=== PATIENT | female | born 1980 | race Caucasian/White ===

== ENCOUNTER 2017-11-23 21:23 | Emergency (ER) | payer OTHER, MEDICAID ==
[~2017-11-23] VITALS: Ht 175.3 cm; Wt 111.1 kg
[~2017-11-23 21:23] MED LIST: CARAFATE 1 GM TA1 G1 PO; CEFDINIR PO; FLEXERIL PO; IBUPROFEN 800800 MG PO; MECLIZINE HCL25 M1 PO; NORCO 5-325 TA1 EACH PO; PERCOCET 5-3251 EACH PO; PHENERGAN 25 MG25 M1 PO; PRILOSEC 20 MG20 MG PO; TOPAMAX 25 MG T25 M1 PO; TOPAMAX50 MG PO; ZOFRAN ODT4 MG PO; ZOFRAN4 MG PO
[2017-11-23 21:49] LABS: ABSOLUTE BASOPHILS 0.1 thou/uL (0.0-0.2); ABSOLUTE EOSINOPHILS 0.3 thou/uL (0.0-0.7); ABSOLUTE LYMPHOCYTES 2.6 thou/uL (0.8-5.3); ABSOLUTE MONOCYTES 0.5 thou/uL (0.0-1.2); ABSOLUTE NEUTROPHILS 9.8 thou/uL (1.6-8.1); BASOPHILS 0.8 %; HEMATOCRIT 41.1 % (37.0-47.0); HEMOGLOBIN 13.8 gm/dL (12.0-15.0); LYMPHOCYTES 19.3 %; MCH 31.1 pg (26.0-34.0); MCHC 33.6 g/dL (28.0-37.0); MCV 92.4 fL (80.0-100.0); MONOCYTES 4.1 %; NUCLEATED RBCS 0 /100WBC; PLATELET COUNT* 207 thou/uL (150-400); POLYS 73.8 %; RBC 4.45 mil/uL (4.20-5.00); RDW-CV 13.3 % (10.5-14.5); WBC 13.3 thou/uL (4.0-11.0)
[2017-11-23 21:54] LABS: URINE BILIRUBIN NEGATIVE (Negative); URINE BLOOD TRACE (Negative); URINE CLARITY CLEAR; URINE COLOR YELLOW; URINE GLUCOSE-RANDOM NEGATIVE (Negative); URINE KETONES NEGATIVE (Negative); URINE LEUKOCYTES-REFLEX NEGATIVE (Negative); URINE NITRITE-REFLEX NEGATIVE (Negative); URINE PROTEIN NEGATIVE (Negative); URINE SPECIFIC GRAVITY >= 1.030 (1.005-1.030); URINE UROBILINOGEN 0.2 E.U./dl (0.2-1.0)
[2017-11-23 21:59] LABS: CALCIUM 9.4 mg/dL (8.5-10.1); CREATININE 0.7 mg/dL (0.6-1.3); POTASSIUM 3.4 mmol/L (3.5-5.1)
[2017-11-23 22:03] LABS: ALBUMIN 3.9 g/dL (3.4-5.0); TOTAL BILIRUBIN 0.2 mg/dL (<0.1-1.0); TOTAL PROTEIN 8.2 g/dL (6.4-8.2)
[2017-11-23 22:08] LABS: APTT 25.6 Seconds (25.0-31.3); INR 1.1; PROTIME 10.8 Seconds (9.20-11.50)
[2017-11-23] MEDS ORDERED: FLAGYL500 MG PO (23:16)
[2017-11-23] MEDS ORDERED: CIPRO500 MG PO (23:16)
[2017-11-23] MEDS ORDERED: NORCO 5-325 TA1 EAC1 PO (23:17)
[2017-11-23 23:35] VITALS: BP 141/97
== END 2017-11-23 23:35 | disposition home or self-care (01) ==
LOC: M.ERS 21:23
PROVIDERS: Physician Assistant
DX: K52.9 Noninfective gastroenteritis and colitis, unspecified (principal); Z88.1 Allergy status to other antibiotic agents; Z88.0 Allergy status to penicillin

== ENCOUNTER 2017-11-25 23:08 | Observation (INO) | payer OTHER, MEDICAID ==
[~2017-11-25] VITALS: Ht 175.3 cm; Wt 116.1 kg
--- NOTE | ~2017-11-25 | OP ---
[address] [address] OPERATIVE REPORT Name: JEREMY CAREY Room: [address] IN M.R.#: [id number] Admission: 11/26/17 Attend Phys: Robin Bhatti Discharge: 11/27/17 Date of : 84 Report #: [id number] THIS REPORT FOR: //name// For additional GI procedure report details, please see the Provation Report in Perceptive 7 content. By: 1311Medical Records Staff NETO /JESUSITA
[~2017-11-25 23:08] MED LIST changes: +CIPRO500 MG PO; +FLAGYL500 MG PO; +NORCO 5-325 TA1 EAC1 PO
[2017-11-25 23:10] VITALS: BP 137/89
[2017-11-25 23:49] LABS: ABSOLUTE BASOPHILS 0.1 thou/uL (0.0-0.2); ABSOLUTE EOSINOPHILS 0.4 thou/uL (0.0-0.7); ABSOLUTE MONOCYTES 0.7 thou/uL (0.0-1.2); ABSOLUTE NEUTROPHILS 5.2 thou/uL (1.6-8.1); BASOPHILS 1.1 %; EOSINOPHILS 4.4 %; HEMATOCRIT 38.5 % (37.0-47.0); LYMPHOCYTES 31.5 %; MCH 31.3 pg (26.0-34.0); MCHC 33.8 g/dL (28.0-37.0); MCV 92.7 fL (80.0-100.0); MONOCYTES 7.7 %; MPV 7.3 fl. (7.2-11.1); NUCLEATED RBCS 0 /100WBC; PLATELET COUNT* 183 thou/uL (150-400); POLYS 55.3 %; RBC 4.15 mil/uL (4.20-5.00); RDW-CV 13.4 % (10.5-14.5); WBC 9.4 thou/uL (4.0-11.0)
[2017-11-26] LABS: ANION GAP 5 mmol/L (7-16); BUN 14 mg/dL (7-18); CALCIUM 8.7 mg/dL (8.5-10.1); CHLORIDE 107 mmol/L (98-107); CO2 29 mmol/L (21-32); CREATININE 0.8 mg/dL (0.6-1.3); GLUCOSE 104 mg/dL (70-99); SODIUM 141 mmol/L (136-145)
[2017-11-26 00:10] LABS: ALBUMIN 3.5 g/dL (3.4-5.0); ALKALINE PHOSPHATASE 81 U/L (46-116); SGOT 30 U/L (15-37); SGPT 43 U/L (30-65); TOTAL PROTEIN 7.4 g/dL (6.4-8.2)
[2017-11-26 00:11] LABS: TOTAL BILIRUBIN < 0.1 mg/dL (<0.1-1.0)
[2017-11-26 01:40] VITALS: BP 132/93; BP 137/89
--- NOTE | 2017-11-26 02:51 | NUR ---
PATIENT ARRIVED BY CART FROM ER TO ROOM 111 IN STABLE CONDITION AT 0140. ORIENTED X4. RATED PAIN AT A 7/10 ON ARRIVAL, FENTANYL GIVEN TO GOOD EFFECT. VITALS STABLE. CONTINUE TO MONITOR.
[2017-11-26 07:05] LABS: URINE BILIRUBIN NEGATIVE (Negative); URINE BLOOD NEGATIVE (Negative); URINE CLARITY CLEAR; URINE COLOR YELLOW; URINE GLUCOSE-RANDOM NEGATIVE (Negative); URINE KETONES NEGATIVE (Negative); URINE LEUKOCYTES NEGATIVE (Negative); URINE NITRITE NEGATIVE (Negative); URINE PROTEIN NEGATIVE (Negative); URINE UROBILINOGEN 0.2 E.U./dl (0.2-1.0)
[2017-11-26 10:39] VITALS: BP 99/62
--- NOTE | 2017-11-26 16:03 | NUR ---
CM SPOKE TO THE PATIENT TO DISCUSS HOME SITUATION, DISCHARGE PLANNING, AND TO INFORM OF THE ROLE OF CM. PATIENT ALERT, ORIENTED, AND INDEPENDENT WITH ADL'S. PATIENT RESIDES AT HOME WITH SIGNIFICANT OTHER. PATIENT ABLE TO PERFORM CURER ACID DRUM AND DRIVES. PATIENT OWNS 0 DME. PATIENT HAS NO HX OF HH OR SNF. PATIENT PLANS TO RETURN HOME AT DISCHARGE AND DOES NOT ANTICIPATE ANY NEEDS. PATIENT DOES NOT CURRENTLY HAVE A PCP, BUT GOES TO [facility] FOR MEDICAL CARE. CM PROVIDED THE PATIENT WITH A LIST OF PCP'S IN HER AREA. CM WILL REMAIN AVAILABLE TO ASSIST AND FOLLOW NEEDED.
[2017-11-26 16:08] VITALS: BP 93/65
--- NOTE | 2017-11-26 17:56 | NUR ---
PATIENT IS ALERT AND ORIENTED TODAY VERY PLEASANT. VITAL SIGNS STABLE ON ROOM AIR. PAIN IS WELL CONTROLLED WITH IV PAIN MEDICATIONS AND NAUSEA CONTROLLED WITH IV MEDICATIONS. PATIENT IS UP AD KWASI IN ROOM. WILL BE STARTING BOWEL PREP TOMORROW. CALL LIGHT IS IN REACH, WILL CONTINUE TO MONITOR.
[2017-11-26 20:00] VITALS: BP 117/74
[2017-11-27 04:27] LABS: ABSOLUTE BASOPHILS 0.1 thou/uL (0.0-0.2); ABSOLUTE EOSINOPHILS 0.4 thou/uL (0.0-0.7); ABSOLUTE LYMPHOCYTES 1.7 thou/uL (0.8-5.3); ABSOLUTE MONOCYTES 0.7 thou/uL (0.0-1.2); ABSOLUTE NEUTROPHILS 7.1 thou/uL (1.6-8.1); BASOPHILS 0.5 %; EOSINOPHILS 3.6 %; HEMATOCRIT 35.9 % (37.0-47.0); HEMOGLOBIN 12.1 gm/dL (12.0-15.0); LYMPHOCYTES 16.9 %; MCH 31.1 pg (26.0-34.0); MCHC 33.5 g/dL (28.0-37.0); MCV 92.7 fL (80.0-100.0); MPV 7.4 fl. (7.2-11.1); NUCLEATED RBCS 0 /100WBC; PLATELET COUNT* 155 thou/uL (150-400); RBC 3.88 mil/uL (4.20-5.00); WBC 9.9 thou/uL (4.0-11.0)
--- NOTE | 2017-11-27 04:30 | NUR ---
PATIENT ORIENTED X4 ON HOURLY ROUNDS. UP AD KWASI TO BATHROOM. BOWEL PREP GIVEN ORDERED. MULTIPLE BM'S THIS SHIFT. NOT YET CLEAR. MEDICATED FOR PAIN AND NAUSEA WITH PARTIAL EFFECT REPORTED. VITALS STABLE ON ROOM AIR. WILL CONTINUE TO MONITOR.
[2017-11-27 04:42] LABS: CALCIUM 8.9 mg/dL (8.5-10.1); CREATININE 0.8 mg/dL (0.6-1.3); POTASSIUM 4.1 mmol/L (3.5-5.1)
[2017-11-27 05:49] LABS: ESR (SEDRATE) 11 mm/hr (0-20)
--- NOTE | 2017-11-27 07:49 | CON ---
[address] [address] CONSULTATION Name: JEREMY CAREY MERON Room: [address] IN M.R.#: [id number] Admission: 11/26/17 Attend Phys: Robin Bhatti Discharge: Date of : 84 Report #: [id number] THIS REPORT FOR: //name// CC: CARLITOS Norton DATE OF SERVICE: 11/26/2017 INFECTIOUS DISEASE CONSULTATION ATTENDING PHYSICIAN: Dr. Norton. REASON FOR EVALUATION: Colitis. HISTORY OF PRESENT ILLNESS: Chart reviewed, the patient examined. This is a 37-year-old woman with history of lupus, although she is not particularly symptomatic, had a positive GOLDEN apparently and has not been on treatment. Also, a history of lymphoma as a teenager. She has had at least one relapse. She is currently not on therapy, who developed diarrheal illness and subsequently developed bright red blood per rectum and bilateral lower quadrant pain. She described it stabbing in character. There were associated chills and without evidence of fevers. She has not had previous similar-type episodes. She notes no particular exposure history. She does have 2 children aged 10 and 15. Nobody has been ill. She has animals that are primarily 2 indoor dogs. No recent travel. No dietary indiscretion. She has persistent pain at this point, still having bloody stools. The stool studies are pending. She was empirically started on ciprofloxacin and metronidazole. She is not encephalopathic. Denies any pulmonary-related complaints. ALLERGIES: PENICILLIN WHICH CAUSES ANAPHYLAXIS; ERYTHROMYCIN, AGAIN CAUSED ANAPHYLAXIS. CURRENT MEDICATIONS: Include Flagyl, Cipro, p.r.n. analgesics and antiemetics. PAST MEDICAL HISTORY: As described above, history of seizures, previous hysterectomy and some thyroid nodules with negative cultures. SOCIAL HISTORY: Smokes 1 to 2 packs per week. No ethanol. No illicit drug use. FAMILY HISTORY: Noncontributory. REVIEW OF SYSTEMS: As above. PHYSICAL EXAMINATION: GENERAL: She is pleasant, alert, cooperative, in mild distress, [place] [address] CONSULTATION Name: JEREMY CAREY MERON Room: [address]#: [id number] Admission: 11/26/17 Attend Phys: Robin Bhatti Discharge: Date of : 84 Report #: [id number] generally well nourished. VITAL SIGNS: Temperature 98, pulse 60, respirations 16 and blood pressure is 99/62. SKIN: Warm, dry. No rashes. HEENT: Unremarkable. NECK: Supple. LUNGS: Clear to auscultation. HEART: Regular. I do not appreciate a murmur. ABDOMEN: Soft, nontender and nondistended. There are no peritoneal signs. GENITOURINARY: Deferred. RECTAL: Deferred. LOWER EXTREMITIES: No edema. LABORATORY DATA: Negative test. Urinalysis unremarkable. Lactic acid 1.2. Electrolytes: Sodium 141, potassium 4.0, chloride 107, bicarbonate is 29 and BUN and creatinine 14 and 0.8. LFTs unremarkable. Albumin of 3.5. Total protein 7.4. Estimated GFR of 82. CBC; initial white count was 13.3, repeat was 9.4; H and H 13.0 and 38.5 and platelets of 183,000. CT abdomen and pelvis shows clear lung bases, mild thickening of the transverse colon and left descending sigmoid colonic wall. PT of 10.8 and INR 1.1. ASSESSMENT AND PLAN: Enteritis/colitis. We will continue empiric antibacterial therapy. Certainly, it could be dysentery, although need to consider noninfectious causes as well. We will await stool results. She is not overtly toxic at this point. Continue resuscitative measures with hydration. Advance diet as tolerated. <ELECTRONICALLY SIGNED> By: Alexandru Morocho MD 11/27/17 0749 1339 2200Jowalter Morocho MD /nt
[2017-11-27 07:55] VITALS: BP 115/68
--- NOTE | 2017-11-27 14:04 | NUR ---
PATIENT LEFT UNIT FOR PACU AT 1350. WILL CONTINUE TO MONITOR.
[2017-11-27 16:07] VITALS: BP 100/72
[2017-11-27 20:02] VITALS: BP 100/72
[2017-11-27] MEDS ORDERED: MIRALAX17 GM PO (20:08)
[2017-11-27] MEDS ORDERED: PRILOSEC OTC20 MG PO (20:09)
--- NOTE | 2017-12-01 12:32 | S ---
[place] [address] SURGICAL PATH RPT PROCEDURE Name: KYLEE CAREY Room: [address] IN ..#: [id number] Admission: 11/26/17 Date of : 84 Discharge: 11/27/17 Report #: [id number] Path Case #: [id number] PATHOLOGY REPORT COLLECTION DATE: 11/27/2017 RECEIVED DATE: 11/30/2017 SUBMITTING PHYS: Dr. Asia Davis OTHER PHYS: Dr. Shy Gan SPECIMEN(S) RECEIVED: A.Descending colon * * * * * * * * * * * * FINAL DIAGNOSIS: Descending colon/colitis: - Mild active colitis compatible with ischemic colitis, negative for granulomas, viral inclusions, and dysplasia. (see comment) COMMENT: The biopsies reveal benign colonic mucosa, several having fairly discrete superficial vaguely atrophic glands in association with condensed lamina propria, possibly fibrotic, and with fairly few neutrophils scattered in the lamina propria, also associated with some fresh hemorrhage. There is no significant crypt distortion or basal lymphoplasmacytosis to elevate a suspicion of inflammatory bowel disease. (RUSS:; 12/01/2017) PATHOLOGIST: Italo Carrasco M.D. REPORT ELECTRONICALLY SIGNED BY: Italo Carrasco M.D. DATE/TIME: 12/01/2017 12:32 * * * * * * * * * * * * GROSS PATHOLOGY: Received in formalin labeled "Kylee Carey, descending colon/colitis, suspicious for colonic ischemia," are seven segments of maguire soft tissue measuring 0.9 x 0.7 x 0.1 cm in aggregate dimensions and ranging from 0.2 to 0.7 cm in maximum dimension. The specimen is submitted entirely in cassette A1. (CAA; 11/30/2017) CLINICAL HISTORY: Suspicious for colonic ischemia INITIAL CPT CODE(S): [place] [id number] SURGICAL PATH RPT PROCEDURE Name: KYLEE CAREY Room: [address]#: [id number] Admission: 11/26/17 Date of : 84 Discharge: 11/27/17 Report #: [id number] Path Case #: [id number]; [id number] Professional services performed by [facility] at [facility], [facility] [place] [address]. Technical services performed by [employer] at [address] [place] [address], [facility] [address], [place] [address]. [facility] [address] [address] PHONE: [phone] DIRECTOR: Rob Rod M.D. * * * END OF REPORT * * *
--- NOTE | 2017-12-11 09:26 | D ---
[address] [address] DISCHARGE SUMMARY Name: JEREMY CAREY Room: [address] Mery Vasquez#: [id number] Admission: 11/26/17 Attend Phys: Robin Bhatti Discharge: 11/27/17 Date of : 84 Report #: [id number] THIS REPORT FOR: //name// CC: CARLITOSJocelyn Norton DATE OF SERVICE: 11/27/2017 DATE OF DISMISSAL: 11/27/2017. DISMISSAL DIAGNOSES: 1. Distal colon ischemic colitis. 2. Gastrointestinal bleed. 3. Suspected bacterial colitis. 4. History of lymphoma. 5. Moderate obesity. REASON FOR HOSPITAL STAY: This pleasant patient was admitted to the hospital with abdominal discomfort, diarrhea and rectal bleeding. PHYSICAL EXAMINATION: GENERAL: On admission, she was alert and oriented. VITAL SIGNS: Stable. She was afebrile. Blood pressure 115/68, pulse 57, respiratory rate was 16 and unlabored. ABDOMEN: Soft, nonsurgical. NEUROLOGIC: Cranial nerves 2-12 were grossly intact. She had normal function and speech. Gait was within normal limits. HEENT: Mucous membranes were moist. SKIN: Warm and dry. EXTREMITIES: Capillary refill was normal. Extremities were without tenderness. Homans sign was negative. LABORATORY DATA: Hemoglobin 12.1, platelets 155,000. Free T4 is 1.03. C-reactive protein was less than 2. The patient underwent colonoscopy by Dr. Daivs. Biopsies were suspicious for ischemic colitis. DISCHARGE INSTRUCTIONS: The patient was discharged on oral Flagyl and Cipro, to see Dr. Davis in 1 week and primary care doctor in 3-5 days. She may call or return with recurrent symptoms, which brought her to seek medical attention. DISCHARGE MEDICATIONS: For discharge medications, please see medication reconciliation. COMPLICATIONS: None. DISCHARGE CONDITION: [place] [address] DISCHARGE SUMMARY Name: JEREMY CAREY Room: [address] Mery Vasquez#: [id number] Admission: 11/26/17 Attend Phys: Robin Bhatti Discharge: 11/27/17 Date of : 84 Report #: [id number] CONSULTATIONS: With Dr. Morocho and Dr. Davis. PROCEDURES: Colonoscopy. <ELECTRONICALLY SIGNED> By: Timoteo Roach MD 12/11/17 0926 1931 2217Thjose roberto Roach MD /nt
--- NOTE | 2017-12-11 19:58 | CON ---
[address] [address] CONSULTATION Name: JEREMY CAREY Room: [address] Mery Vasquez#: [id number] Admission: 11/26/17 Attend Phys: Robin Bhatti Discharge: 11/27/17 Date of : 84 Report #: [id number] THIS REPORT FOR: //name// CC: CARLITOS MARTINO DATE OF SERVICE: 11/26/2017 ADDENDUM Visit ____job number [id number]. I have seen and examined today and agree with plans been outlined by our nurse practitioner, Shruthi Orlando. I agree that ischemic colitis is likely the diagnosis and that we will need to get her established bowel regimen once we determine the same. We will need to get her on a bowel regimen that will work to prevent further recurrence of the same. Since she also has problems with chronic acid reflux, but not take anything or any antacids on a p.r.n. basis, I also recommended we proceed with upper endoscopy tomorrow when she gets her colonoscopy. These have been scheduled with my partner, Dr. Davis, to be done tomorrow. <ELECTRONICALLY SIGNED> By: Reg Mckeon DO 12/11/171957 1708 Abi Mckeon DO /yoko
--- NOTE | 2017-12-11 19:58 | CON ---
[address] [address] CONSULTATION Name: JEREMY CAREY Room: [address] Mery Vasquez#: [id number] Admission: 11/26/17 Attend Phys: Robin Bhatti Discharge: 11/27/17 Date of : 84 Report #: [id number] THIS REPORT FOR: //name// CC: CARLITOS Torrez DICTATED BY: Shruthi Orlando [facility] DATE OF SERVICE: 11/26/2017 PRIMARY CARE PHYSICIAN: Cristhian Torrez in [place], [place]. Please note at the time of this dictation, the patient was seen and physically examined by myself. REASON FOR CONSULTATION: Abdominal pain and rectal bleeding. HISTORY OF PRESENT ILLNESS: This is a 37-year-old female who was seen yesterday in the office by myself after following up with an ER visit that she was here on the of this month, which she was sent home on Cipro and Flagyl because she wanted to be treated at home on antibiotics. CT findings at that time suggested of mild mural thickening of the transverse, descending, and sigmoid colon and she opted to go home on treatment. She followed up with me yesterday in the office. She was having some discomfort. She continued to have some bright red bloody diarrhea along with her stools. She states appetite has been a little diminished because it does make her feel a little sick to her stomach and worsening of abdominal pain when she has to have a bowel movement. Yesterday when she was seen in the office, she was given samples of Linzess 145, but she had not started taking them. Because she does have a history of constipation and had not really felt like she fully evacuated her bowel, she was instructed to do a bottle of magnesium citrate, which she did yesterday, ate dinner and then after eating dinner, her symptoms increasingly got worse, prompting her to come to the Emergency Room that she felt like she could no longer manage it as an outpatient. The patient was scheduled for an outpatient colonoscopy in December, but we will plan on doing one for tomorrow to further evaluate her symptomatology. ALLERGIES: PENICILLIN AND ERYTHROMYCIN. MEDICATIONS: From home include Cipro and Flagyl and then the [place]. PAST MEDICAL HISTORY: She has had a history of lymphoma x 2, first onset was at age 18, history of some lupus, seizure disorder. PAST SURGICAL HISTORY: Hysterectomy. She has had some skin biopsy, [place] [address] CONSULTATION Name: JEREMY CAREY Room: [address] Mery Vasquez#: [id number] Admission: 11/26/17 Attend Phys: Robin Bhatti Discharge: 11/27/17 Date of : 84 Report #: [id number] and knee surgery. FAMILY HISTORY: Father recently diagnosed with colon cancer at 54. SOCIAL HISTORY: She lives with her fiance. Denies any alcohol, tobacco or illegal drug use at this time. REVIEW OF SYSTEMS: Twelve-point review of systems is essentially negative except what is mentioned in the HPI. PHYSICAL EXAMINATION: VITAL SIGNS: Temperature 36.7, pulse 60, respirations 16, blood pressure 99/62. HEART: Regular rate and rhythm. LUNGS: Clear. ABDOMEN: Soft, positive bowel sounds in all 4 quadrants with generalized tenderness, mainly in the transverse and on the left side of the colon. LABORATORY DATA: Hemoglobin on the was 13.8. She is down to 13, hematocrit 38.5, white count today was 9.4, on the she was 13.5. Platelets 183, sodium 141, potassium 4, chloride 107, CO2 of 29, BUN is 14, creatinine 0.8, GFR is 82 and glucose is 104. Her CT scan from the showed mild thickening of the transverse, left descending and sigmoid colon. IMPRESSION: 1. Abdominal pain, worsening. 2. Bloody stool. 3. Colonic ischemia. 4. Personal history of lymphoma. 5. Family history of colon cancer, father, recently diagnosed. PLAN: 1. Colonoscopy tomorrow with Dr. Davis. 2. Continue IV Cipro and Flagyl. 3. Clear liquid diet. 4. Further recommendations to be made once the patient has had the colonoscopy tomorrow. 5. The patient will be instructed that if she is discharged over the weekend to start taking the Linzess that she was given samples in our office. Thank you for allowing us to participate in this patient's care. Please do not hesitate to call with any questions in regard to this consult. <ELECTRONICALLY SIGNED> By: Reg Mckeon DO 12/11/171957 1318 1825Reg Mckeon DO /nt
== END 2017-11-27 20:36 | disposition home or self-care (01) ==
LOC: M.ERS 23:08 → M.ORTHSURG 11-26 00:43 → M.TBA-ER 11-26 00:43 → M.ORTHSURG 11-26 00:43
PROVIDERS: Internal Medicine Gastroenterology; Physician Assistant; ADMIT Internal Medicine
DX: K52.9 Noninfective gastroenteritis and colitis, unspecified (principal); K55.1 Chronic vascular disorders of intestine; K64.8 Other hemorrhoids; K92.1 Melena; A04.9 Bacterial intestinal infection, unspecified; K52.89 Other specified noninfective gastroenteritis and colitis; K92.2 Gastrointestinal hemorrhage, unspecified; R93.3 Abnormal findings on diagnostic imaging of other parts of digestive tract; K21.9 Gastro-esophageal reflux disease without esophagitis; R56.9 Unspecified convulsions; E66.9 Obesity, unspecified; Z68.37 Body mass index [BMI] 37.0-37.9, adult; F17.210 Nicotine dependence, cigarettes, uncomplicated; Z85.72 Personal history of non-Hodgkin lymphomas; Z23 Encounter for immunization

== ENCOUNTER 2018-09-07 21:11 | Emergency (ER) | payer OTHER, MEDICAID ==
[~2018-09-07] VITALS: Ht 175.3 cm; Wt 120.2 kg
[~2018-09-07 21:11] MED LIST changes: +MIRALAX17 GM PO; +PRILOSEC OTC20 MG PO
[2018-09-07] MEDS ORDERED: SYNTHROID125 MC1 PO (21:21)
[2018-09-07 21:35] LABS: URINE BILIRUBIN NEGATIVE (Negative); URINE BLOOD NEGATIVE (Negative); URINE CLARITY CLEAR; URINE COLOR YELLOW; URINE GLUCOSE-RANDOM NEGATIVE (Negative); URINE KETONES NEGATIVE (Negative); URINE LEUKOCYTES-REFLEX NEGATIVE (Negative); URINE NITRITE-REFLEX NEGATIVE (Negative); URINE PROTEIN NEGATIVE (Negative); URINE SPECIFIC GRAVITY >= 1.030 (1.005-1.030); URINE UROBILINOGEN 0.2 E.U./dl (0.2-1.0)
[2018-09-07 21:42] LABS: AMP/METHAMP Negative (Negative); BARBITURATES Negative (Negative); BENZODIAZEPINES Negative (Negative); COCAINE Negative (Negative); METHADONE Negative (Negative); OPIATES Negative (Negative); PCP Negative (Negative); THC Negative (Negative)
[2018-09-07 21:59] LABS: ABSOLUTE BASOPHILS 0.1 thou/uL (0.0-0.2); ABSOLUTE EOSINOPHILS 0.4 thou/uL (0.0-0.7); ABSOLUTE LYMPHOCYTES 3.2 thou/uL (0.8-5.3); ABSOLUTE MONOCYTES 0.9 thou/uL (0.0-1.2); ABSOLUTE NEUTROPHILS 5.5 thou/uL (1.6-8.1); EOSINOPHILS 3.9 %; HEMATOCRIT 40.6 % (37.0-47.0); HEMOGLOBIN 13.6 gm/dL (12.0-15.0); LYMPHOCYTES 31.7 %; MCH 30.8 pg (26.0-34.0); MCHC 33.4 g/dL (28.0-37.0); MCV 92.4 fL (80.0-100.0); MONOCYTES 8.6 %; MPV 7.3 fl. (7.2-11.1); NUCLEATED RBCS 0 /100WBC; PLATELET COUNT* 212 thou/uL (150-400); POLYS 54.8 %; RDW-CV 13.7 % (10.5-14.5)
[2018-09-07 22:01] LABS: CALCIUM 8.8 mg/dL (8.5-10.1); CREATININE 0.9 mg/dL (0.6-1.3); POTASSIUM 3.6 mmol/L (3.5-5.1)
[2018-09-07 22:06] LABS: ALBUMIN 3.5 g/dL (3.4-5.0); TOTAL BILIRUBIN 0.2 mg/dL (<0.1-1.0); TOTAL PROTEIN 7.5 g/dL (6.4-8.2)
[2018-09-07 23:11] VITALS: BP 148/95
== END 2018-09-07 23:13 | disposition home or self-care (01) ==
LOC: M.ERS 21:11
PROVIDERS: Emergency Medicine
DX: R20.2 Paresthesia of skin (principal); M32.9 Systemic lupus erythematosus, unspecified; E89.0 Postprocedural hypothyroidism; R20.0 Anesthesia of skin; Z88.0 Allergy status to penicillin; Z88.1 Allergy status to other antibiotic agents; Z98.890 Other specified postprocedural states; Z90.710 Acquired absence of both cervix and uterus; Z79.899 Other long term (current) drug therapy

== ENCOUNTER 2019-03-21 22:14 | Emergency (ER) | payer OTHER, MEDICAID ==
[~2019-03-21] VITALS: Ht 175.3 cm; Wt 113.4 kg
[~2019-03-21 22:14] MED LIST changes: +SYNTHROID175 MCG
[2019-03-21] MEDS ORDERED: IBUPROFEN 800800 M1 PO (23:08)
[2019-03-21 23:49] VITALS: BP 114/84
== END 2019-03-21 23:23 | disposition home or self-care (01) ==
LOC: M.ERS 22:14
DX: S90.31XA Contusion of right foot, initial encounter (principal); M32.9 Systemic lupus erythematosus, unspecified; F17.210 Nicotine dependence, cigarettes, uncomplicated; Z88.1 Allergy status to other antibiotic agents; Z88.0 Allergy status to penicillin; Z88.5 Allergy status to narcotic agent; Z90.710 Acquired absence of both cervix and uterus; Z98.890 Other specified postprocedural states; W20.8XXA Other cause of strike by thrown, projected or falling object, initial encounter; Y93.89 Activity, other specified; Y92.89 Other specified places as the place of occurrence of the external cause; Y99.8 Other external cause status

== ENCOUNTER 2019-09-16 15:10 | Emergency (ER) | payer OTHER ==
[~2019-09-16] VITALS: Ht 175.3 cm; Wt 115.7 kg
[~2019-09-16 15:10] MED LIST changes: +IBUPROFEN 800800 M1 PO; -SYNTHROID175 MCG; +SYNTHROID175 MCG PO
[2019-09-16 15:43] LABS: HEMATOCRIT 44.4 % (37.0-47.0); HEMOGLOBIN 15.2 gm/dL (12.0-15.0); MCH 31.8 pg (26.0-34.0); MCHC 34.3 g/dL (28.0-37.0); MCV 92.8 fL (80.0-100.0); MPV 6.9 fl. (7.2-11.1); NUCLEATED RBCS 0 /100WBC; PLATELET COUNT* 194 thou/uL (150-400); RBC 4.79 mil/uL (4.20-5.00); RDW-CV 13.2 % (10.5-14.5); WBC 10.4 thou/uL (4.0-11.0)
[2019-09-16 15:57] LABS: CALCIUM 9.1 mg/dL (8.5-10.1); CREATININE 0.9 mg/dL (0.6-1.3); POTASSIUM 4.2 mmol/L (3.5-5.1)
[2019-09-16 16:01] LABS: ALBUMIN 3.8 g/dL (3.4-5.0); TOTAL BILIRUBIN 0.4 mg/dL (<0.1-1.0)
[2019-09-16 16:32] LABS: URINE BILIRUBIN NEGATIVE (Negative); URINE BLOOD 1+ (Negative); URINE CLARITY CLEAR; URINE COLOR YELLOW; URINE GLUCOSE-RANDOM NEGATIVE (Negative); URINE KETONES NEGATIVE (Negative); URINE LEUKOCYTES-REFLEX NEGATIVE (Negative); URINE NITRITE-REFLEX NEGATIVE (Negative); URINE PROTEIN NEGATIVE (Negative); URINE SPECIFIC GRAVITY 1.025 (1.005-1.030); URINE UROBILINOGEN 0.2 E.U./dl (0.2-1.0)
[2019-09-16 16:46] LABS: SQUAMOUS 4-10 Moderate /LPF (0-3); URINE RBC 0-2 Rare /HPF (0-2); URINE WBC-REFLEX 0-5 Rare /HPF (0-5)
[2019-09-16 16:47] LABS: BACTERIA-REFLEX 1-9 Few /HPF (None Seen); CASTS None Seen /LPF (None Seen); CRYSTALS None Seen /LPF (None Seen); MUCUS >6 Heavy strn/LPF (None Seen)
[2019-09-16 16:50] LABS: ABSOLUTE EOSINOPHILS 0.1 thou/uL (0.0-0.7); ABSOLUTE LYMPHOCYTES 0.8 thou/uL (0.8-5.3); ABSOLUTE MONOCYTES 0.2 thou/uL (0.0-1.2); ABSOLUTE NEUTROPHILS 9.3 thou/uL (1.6-8.1); PLATELET ESTIMATE ADEQUATE
[2019-09-16] MEDS ORDERED: NABUMETONE 750750 M1 PO (17:07)
[2019-09-16] MEDS ORDERED: ONDANSETRON HCL4 M2 PO (17:07)
[2019-09-16] MEDS ORDERED: BENTYL 20 MG TA20 M1 PO ×2 (17:07)
[2019-09-16 17:20] VITALS: BP 104/60
--- NOTE | 2019-09-17 11:42 | EKG ---
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: : 1980 Requested By: Cris Jeter Order Number: [id number] MD: Jose Murry Measurements Intervals [place] Rate: 89 P: 67 [place]: 162 QRS: 12 QRSD: 93 T: 63 QT: 372 QTc: 453 Interpretive Statements Sinus rhythm Low voltage, precordial leads Baseline wander in lead(s) V1,V5 Compared to ECG 12/29/2018 20:48:12 No significant changes Electronically Signed On 09-17-2019 11:42:27 OVEN UNLOADER by Jose Murry [email or web address] <ELECTRONICALLY SIGNED> By: Aleah Murry MD, [facility] 09/17/19 1142 1539 1539 Aleah Murry MD, [facility] /EPI
== END 2019-09-16 17:21 | disposition home or self-care (01) ==
LOC: M.ERS 15:10
PROVIDERS: Nurse Practitioner Family
DX: K52.9 Noninfective gastroenteritis and colitis, unspecified (principal); M32.9 Systemic lupus erythematosus, unspecified; Z88.1 Allergy status to other antibiotic agents; Z88.0 Allergy status to penicillin; Z88.5 Allergy status to narcotic agent; Z90.710 Acquired absence of both cervix and uterus; Z98.890 Other specified postprocedural states

== ENCOUNTER 2020-06-13 19:28 | Emergency (ER) | payer OTHER ==
[~2020-06-13] VITALS: Ht 175.3 cm; Wt 108.9 kg
[~2020-06-13 19:28] MED LIST changes: +BENTYL 20 MG TA20 M1 PO; +NABUMETONE 750750 M1 PO; +ONDANSETRON HCL4 M2 PO
[2020-06-13] MEDS ORDERED: BACTRIM DS TAB1 EACH PO (20:52)
[2020-06-13] MEDS ORDERED: KEFLEX500 M1 PO (20:52)
== END 2020-06-13 21:14 | disposition home or self-care (01) ==
LOC: M.ERS 19:28
DX: T16.2XXA Foreign body in left ear, initial encounter (principal); H60.12 Cellulitis of left external ear; M32.9 Systemic lupus erythematosus, unspecified; F17.210 Nicotine dependence, cigarettes, uncomplicated; Z90.710 Acquired absence of both cervix and uterus; Z98.890 Other specified postprocedural states; Z88.1 Allergy status to other antibiotic agents; Z88.5 Allergy status to narcotic agent; Z88.0 Allergy status to penicillin; X58.XXXA Exposure to other specified factors, initial encounter; Y93.89 Activity, other specified; Y92.89 Other specified places as the place of occurrence of the external cause; Y99.8 Other external cause status

== ENCOUNTER 2020-07-07 07:50 | Emergency (ER) | payer OTHER ==
[~2020-07-07] VITALS: Ht 175.3 cm; Wt 113.4 kg
[~2020-07-07 07:50] MED LIST changes: +BACTRIM DS TAB1 EACH PO; +KEFLEX500 M1 PO
[2020-07-07] MEDS ORDERED: LEVOXYL88 MCG PO (08:13)
[2020-07-07] MEDS ORDERED: LEVO-T100 MCG PO (08:13)
[2020-07-07] MEDS ORDERED: ZOFRAN ODT4 MG SUBLING (09:08)
[2020-07-07] MEDS ORDERED: NORCO 5-325 TA1 EAC2 PO (09:08)
[2020-07-07 09:15] VITALS: BP 134/90
== END 2020-07-07 09:16 | disposition home or self-care (01) ==
LOC: M.ERS 07:50
DX: B34.9 Viral infection, unspecified (principal); F17.210 Nicotine dependence, cigarettes, uncomplicated; Z20.828 Contact with and (suspected) exposure to other viral communicable diseases; Z98.890 Other specified postprocedural states; Z90.710 Acquired absence of both cervix and uterus; Z90.49 Acquired absence of other specified parts of digestive tract; Z88.0 Allergy status to penicillin; Z88.1 Allergy status to other antibiotic agents; Z88.6 Allergy status to analgesic agent

== ENCOUNTER 2021-07-04 17:18 | Emergency (ER) | payer OTHER ==
[~2021-07-04] VITALS: Ht 175.3 cm; Wt 117.9 kg
[~2021-07-04 17:18] MED LIST changes: +LEVO-T100 MCG PO; +LEVOXYL88 MCG PO; +NORCO 5-325 TA1 EAC2 PO; +ZOFRAN ODT4 MG SUBLING
[2021-07-04 20:13] VITALS: BP 150/95
== END 2021-07-04 20:57 | disposition left against medical advice (07) ==
LOC: M.ERS 17:18
DX: R19.7 Diarrhea, unspecified (principal); R10.9 Unspecified abdominal pain; M54.9 Dorsalgia, unspecified; Z53.21 Procedure and treatment not carried out due to patient leaving prior to being seen by health care provider